=== PATIENT | female | born 1995 | race Caucasian/White ===

== ENCOUNTER 2017-03-14 03:47 | Emergency (ER) | payer BC, OTHER ==
[~2017-03-14] VITALS: Ht 162.6 cm; Wt 65.8 kg
[2017-03-14] MEDS ORDERED: PRENATAL TABLE1 EAC1 PO (03:59)
[2017-03-14] MEDS ORDERED: NORCO 5-325 TA1 EACH PO (06:35)
== END 2017-03-14 06:54 | disposition home or self-care (01) ==
LOC: ED 03:47
DX: O20.0 Threatened abortion (principal); Z3A.01 Less than 8 weeks gestation of pregnancy; Z87.891 Personal history of nicotine dependence; Z79.899 Other long term (current) drug therapy
CPT/HCPCS: 76801; 76817; 84702; 85025; 86900; 86901; 99284

== ENCOUNTER 2017-12-03 07:31 | Emergency (ER) | payer OTHER ==
[~2017-12-03] VITALS: Ht 162.6 cm; Wt 68.0 kg
[~2017-12-03 07:31] MED LIST: NORCO 5-325 TA1 EACH PO; PRENATAL TABLE1 EAC1 PO
== END 2017-12-03 08:25 | disposition home or self-care (01) ==
LOC: ED 07:31
DX: N94.6 Dysmenorrhea, unspecified (principal); F17.200 Nicotine dependence, unspecified, uncomplicated; Z79.899 Other long term (current) drug therapy
CPT/HCPCS: 36415; 84703; 99283

== ENCOUNTER 2019-09-12 00:09 | Inpatient (IN) | payer OTHER ==
[~2019-09-12] VITALS: Ht 162.6 cm; Wt 91.0 kg
--- NOTE | ~2019-09-12 | OR ---
[facility] [address] [place], [place] [address] Draft DATE OF OPERATION: 09/13/2019 SURGEON: Antonio Franco DO PREOPERATIVE DIAGNOSES: 1. Term . 2. Failure to progress. 3. Suspected macrosomia. POSTOPERATIVE DIAGNOSES: 1. Term . 2. Failure to progress. 3. Suspected macrosomia. PROCEDURE PERFORMED: Primary low transverse delivery. ANESTHESIA: Spinal. THERAPY ADMINISTRATIVE ASSISTANT: Bette Apodaca MD ESTIMATED BLOOD LOSS: 600 mL. COMPLICATIONS: None. FINDINGS: Viable male born in the GIO position, weighing 8 pounds 1 ounces. Normal uterus, tubes, and ovaries. Nuchal cord x1. INDICATIONS: Ms. Keene is a very pleasant 23-year-old G1 white female, who presented for induction of labor. was complicated by suspected macrosomia with estimated weight by the late 3rd trimester ultrasound of nearly 4500 g. The patient was admitted for cervical ripening and received Cytotec and then a Cook catheter ripening. The vertex remained quite high. However, once Cook catheter was removed, artificial rupture of membranes was able to be performed. An IUPC was placed and patient was started on PATIENT NAME: NEDA KEENE OPERATIVE REPORT DATE OF : 93 REPORT #: [id number] PHYSICIAN: ANTONIO FRANCO DO PCP: ANTONIO FRANCO DO REPORT IS CONFIDENTIAL AND NOT TO BE RELEASED WITHOUT AUTHORIZATION [facility] [address] [place], [place] [address] Draft low-dose Pitocin per protocol. She did receive an epidural catheter for neuraxial pain relief with good success. The patient dilated to approximately 6 cm, however, station did stay quite high. The cervix became quite swollen and a decrease to approximately 3 cm with significant edema noted. Discussed adequate trial of labor and recommendations for primary low-transverse delivery. The patient understands and wishes to proceed with the procedure. TECHNIQUE: The patient was taken to the operating room where a time-out was performed to confirm correct patient, correct procedure. Epidural anesthesia was bolused and found to be adequate. The patient was prepped and draped in the supine position with a bump under the right hip. Summers catheter was inserted and ICPs were on and running. Ancef 2 g preoperatively were given and no heparin was indicated. Once the epidural was found to be adequate, a Pfannenstiel skin incision was made and incision was carried down to the fascia in the midline. The fascia was nicked in the midline and extended bilaterally using blunt dissection. Once significant subcutaneous blood vessel was encountered and made hemostatic with Bovie electrocautery. Fascia was then grasped with Bere's, elevated, and the underlying rectus muscles dissected off bluntly and sharply. The rectus muscles were then easily divided in the midline and the peritoneum was grasped with hemostats, elevated, and entered bluntly and sharply. Peritoneal incision was extended using blunt dissection and the uterus was palpated and found to be normal. vertex station was again noted to be quite high. An Adelfo self retractor was placed in the lower uterine segment identified. Hysterotomy was performed using surgical scalpel and clear amnion was noted. The hysterotomy was extended bilaterally using blunt dissection and the surgeon's hand was placed into the uterine cavity. The head elevated without difficulty and delivered with the assistance of fundal pressure. Nuchal cord x1 was identified and reduced. The fetus was delivered easily with the assistance of fundal pressure. was vigorous and cried upon delivery. Cord was doubly clamped and cut and cord blood was obtained for routine analysis. The was handed to the waiting pediatric team for further care. Placenta was then manually expressed intact with a centrally inserted three-vessel cord. Bleeding was quite light and the uterine cavity was cleared of any remaining products of conception or clot. Pitocin was administered per protocol. Hysterotomy was repaired using 0 Vicryl in a running locked manner. A second suture of 0 Vicryl was applied in a vertical manner with good imbrication. A small amount of oozing was noted in the midline, this was made hemostatic with a lmslsm-vn-nyroj of 0 Vicryl. The pelvis was irrigated and found to be hemostatic. The Adelfo self retractor was removed and the adnexa were examined and found to be normal. ACell sheet was applied to the lower uterine segment and peritoneum was reapproximated using 2-0 Vicryl in a running nonlocked manner. The rectus was examined and a small amount of oozing was made hemostatic with electrocautery. The skin was then reapproximated using 0 chromic. A small amount of oozing was noted with the rectus and this was made hemostatic with a PATIENT NAME: NEDA KEENE OPERATIVE REPORT DATE OF : [birth year] REPORT #: [id number] PHYSICIAN: ANTONIO FRANCO DO PCP: ANTONIO FRANCO DO REPORT IS CONFIDENTIAL AND NOT TO BE RELEASED WITHOUT AUTHORIZATION [address] [address] [place] saglah-no-cxffh of 2-0 chromic. ACell powder was applied after the rectus was irrigated and found to be hemostatic. The fascia was then reapproximated using 0 Vicryl in a running nonlocked manner. Subcu was reapproximated using 2-0 Vicryl in a running nonlocked stitch after ensuring subcu was hemostatic. Skin was reapproximated using surgical chanel. The uterus was Crede'd for small amount of blood and the patient was taken to the PACU in good and stable condition. Sponge, needle, instrument count was correct x2 at the end the procedure. Dr. Apodaca was present and participated in all portions of procedure. Antonio Franco DO JDW/MODL /[id number] Copies: ~ PATIENT NAME: NEDA KEENE OPERATIVE REPORT DATE OF : [birth year] REPORT #: [id number] PHYSICIAN: ANTONIO FRANCO DO PCP: ANTONIO FRANCO DO REPORT IS CONFIDENTIAL AND NOT TO BE RELEASED WITHOUT AUTHORIZATION
[2019-09-12] MEDS ORDERED: IRON325 M1 PO (01:13)
[2019-09-12] MEDS ORDERED: CYCLOBENZAPRINE10 MG PO (01:14)
--- NOTE | 2019-09-12 12:21 | PR ---
[facility] [address] [place], [place] [address] Signed Progress Notes IP Datetime Report Generated by BRAYDEN: 09/12/2019 12:21 PROGRESS NOTES: [id number] Impression: Reassuring heart rate Procedures: Sterile Vag Exam Plan: Continue present management Informed Consent Obtain: Vaginal Delivery; Section Delivery VITAL SIGNS: [id number] Vital Signs: Reviewed; Within Normal Limits EXAM: [id number] Dilatation: 1.0 Effacement: 40 Station: -4 Uterine Contractions: Irregular mild MEMBRANES: [id number] Membrane Status: Intact Comments: Pt seen and examined. Doing good. Very mild irregular ctxs w/ cytotec. Cervix now 1cm, but still thick and vertex not engaged. Discussed options including continued cervical ripening vs low dose pitocin. Would also consider Cook cath. Discussed if vertex does not engage that may be indicated given macrosomia. Pt understands and agree. Requesting cytotec. Will place per protocol. Fetus A: [id number] FHR Baseline: 150 Variability: Moderate 6-25bpm Accelerations: 15X15 Decelerations: None FHR Category: Category I Presentation: Vertex Comments on Fetus A: No evidence of metabolic acidosis Fetus B: [id number] Signing Physician: Antonio Franco DO Copies: ~ *Electronically Signed* 09/12/19 1225 ANTONIO FRANCO DO PATIENT NAME: NEDA KEENE PROGRESS NOTE DATE OF : 93 PHYSICIAN: ANTONIO FRANCO DO RPT #: [id number] REPORT IS CONFIDENTIAL AND NOT TO BE RELEASED WITHOUT AUTHORIZATION
--- NOTE | 2019-09-12 13:59 | PR ---
[facility] [address] [place], [place] [address] Signed Progress Notes IP Datetime Report Generated by BRAYDEN: 09/12/2019 13:59 PROGRESS NOTES: [id number] Impression: Reassuring heart rate Procedures: Sterile Vag Exam Other Procedures: Cook Cath Plan: Cervical Ripening Informed Consent Obtain: Vaginal Delivery; Section Delivery Other Informed Consents: Cook cath placement VITAL SIGNS: [id number] Vital Signs: Reviewed; Within Normal Limits EXAM: [id number] Dilatation: 1.0 Effacement: 40 Station: -3 Uterine Contractions: Irritability MEMBRANES: [id number] Membrane Status: Intact Comments: Pt seen and examined. Doing well. Cervix largely unchanged, but vertex now applied. Ctxs too frequent for additional prostaglandins or initation of pitocin. Discussed option for cervical ripening w/ Cook cath, including risks/benefits. Pt understands and agrees. Cook cath placed per manufacture's instructions. 40cc of sterile water placed in uterine balloon and 20ccs in vaginal balloow with optimal placement noted on exam. Will increase to 80/80 per manufacture's recommendations Fetus A: [id number] FHR Baseline: 145 Variability: Moderate 6-25bpm Accelerations: 15X15 Decelerations: None FHR Category: Category I Presentation: Vertex Comments on Fetus A: No evidence of metabolic acidosis Fetus B: [id number] Signing Physician: Antonio Franco DO Copies: *Electronically Signed* 09/12/19 4869 ANTONIO FRANCO DO PATIENT NAME: NEDA KEENE PROGRESS NOTE DATE OF : 93 PHYSICIAN: ANTONIO FRANCO DO RPT #: [id number] REPORT IS CONFIDENTIAL AND NOT TO BE RELEASED WITHOUT AUTHORIZATION [facility] [address] [place] [id number] Signed ~ *Electronically Signed* 09/12/19 1359 ANTONIO FRANCO DO PATIENT NAME: NEDA KEENE PROGRESS NOTE DATE OF : 93 PHYSICIAN: ANTONIO FRANCO DO RPT #: [id number] REPORT IS CONFIDENTIAL AND NOT TO BE RELEASED WITHOUT AUTHORIZATION
--- NOTE | 2019-09-12 15:42 | PR ---
[facility] [address] [place], [place] [address] Signed Progress Notes IP Datetime Report Generated by BRAYDEN: 09/12/2019 15:42 PROGRESS NOTES: [id number] Impression: Reassuring heart rate Procedures: Sterile Vag Exam Other Procedures: Cook Cath Plan: Anesthesia consult Informed Consent Obtain: Vaginal Delivery; Section Delivery Other Informed Consents: Cook cath placement VITAL SIGNS: [id number] Vital Signs: Reviewed; Within Normal Limits EXAM: [id number] Dilatation: 1.0 Effacement: 40 Station: -3 Uterine Contractions: q 2 minutes MEMBRANES: [id number] Membrane Status: Intact Comments: Pt seen and evaluated. Doing well, but ctxs now very painful. Requesting epidural. Anesthesia notified and will evaluate soon. Cook cath still in place. Will evaluate once patient comfortable w/ epidural Fetus A: [id number] FHR Baseline: 145 Variability: Moderate 6-25bpm Accelerations: None Decelerations: None FHR Category: Category I Presentation: Vertex Comments on Fetus A: No evidence of metabolic acidosis Fetus B: [id number] Signing Physician: Antonio Franco DO Copies: ~ *Electronically Signed* 09/12/19 1542 ANTONIO FRANCO DO PATIENT NAME: NEDA KEENE PROGRESS NOTE DATE OF : 93 PHYSICIAN: ANTONIO FRANCO DO RPT #: [id number] REPORT IS CONFIDENTIAL AND NOT TO BE RELEASED WITHOUT AUTHORIZATION
--- NOTE | 2019-09-12 17:42 | PR ---
[facility] [address] [facility] [place], [place] [address] Signed Progress Notes IP Datetime Report Generated by CPN: 09/12/2019 17:42 PROGRESS NOTES: [id number] Impression: Reassuring heart rate Procedures: Sterile Vag Exam Other Procedures: Cook Cath Plan: Continue present management Informed Consent Obtain: Vaginal Delivery; Section Delivery Other Informed Consents: Cook cath placement VITAL SIGNS: [id number] Vital Signs: Reviewed; Within Normal Limits EXAM: [id number] Dilatation: 1.0 Effacement: 40 Station: -3 Uterine Contractions: q 2 minutes MEMBRANES: [id number] Membrane Status: Intact Comments: Pt seen and examined. More comfortable w/ epidural. Cook cath in place. Will continue mechanical cervical ripening. All questions answered Fetus A: [id number] FHR Baseline: 140 Variability: Moderate 6-25bpm Accelerations: None Decelerations: None FHR Category: Category I Presentation: Vertex Comments on Fetus A: No evidence of metabolic acidosis Fetus B: [id number] Signing Physician: Antonio Franco DO Copies: ~ *Electronically Signed* 09/12/19 1742 ANTONIO FRANCO DO PATIENT NAME: NEDA KEENE PROGRESS NOTE DATE OF : 93 PHYSICIAN: NATONIO FRANCO DO RPT #: [id number] REPORT IS CONFIDENTIAL AND NOT TO BE RELEASED WITHOUT AUTHORIZATION
--- NOTE | 2019-09-12 21:17 | PR ---
[facility] [place] [facility] [address] [place], [place] [address] Signed Progress Notes IP Datetime Report Generated by BRAYDEN: 09/12/2019 21:17 PROGRESS NOTES: [id number] Impression: Reassuring heart rate Procedures: Sterile Vag Exam Other Procedures: Cook Cath Plan: Continue present management Informed Consent Obtain: Vaginal Delivery; Section Delivery Other Informed Consents: Cook cath placement VITAL SIGNS: [id number] Vital Signs: Reviewed EXAM: [id number] Dilatation: 1.0 Effacement: 40 Station: -3 Uterine Contractions: Irritability MEMBRANES: [id number] Membrane Status: Intact Comments: Pt seen and examined. Cook cath in place. Cervix palpated and Cook in excellent position. Reviewed reassuring FHT. Transient HTN noted after epidural placement has resolved. No OBANDO, RUQ pain, or visual changes. Will continue cervical ripening with Cook cath. Plan AROM if vertex well applied when Cook removed. Reviewed plan of care w/ RN and pt. All questions answered Fetus A: [id number] FHR Baseline: 145 Variability: Moderate 6-25bpm Accelerations: None Decelerations: None FHR Category: Category I Presentation: Vertex Comments on Fetus A: No evidence of metabolic acidosis Fetus B: [id number] Signing Physician: Antonio Franco DO Copies: ~ *Electronically Signed* 09/12/19 3254 ANTONIO FRANCO DO PATIENT NAME: NEDA KEENE PROGRESS NOTE DATE OF : 93 PHYSICIAN: ANTONIO FRANCO DO RPT #: [id number] REPORT IS CONFIDENTIAL AND NOT TO BE RELEASED WITHOUT AUTHORIZATION
--- NOTE | 2019-09-12 23:27 | PR ---
[facility] [address] [place], [place] [address] Signed Progress Notes IP Datetime Report Generated by BRAYDEN: 09/12/2019 23:27 PROGRESS NOTES: [id number] Impression: Reassuring heart rate Procedures: Sterile Vag Exam Other Procedures: Cook Cath Plan: Continue present management Informed Consent Obtain: Vaginal Delivery; Section Delivery Other Informed Consents: Cook cath placement VITAL SIGNS: G3309328 Vital Signs: Reviewed; Within Normal Limits EXAM: [id number] Dilatation: 1.0 Effacement: 40 Station: -3 Uterine Contractions: Irritability MEMBRANES: [id number] Membrane Status: Intact Comments: Sterile vaginal exam shows Cook cath in place with cervix remaining. Pt comfortable and resting. FHT reassuring. Will continue w/ Cook until 12 hrs postplacement, and then d/c if Cook not spontaneously delivered. Then will plan AROM if vertex well applied or low dose pitocin if not well applied. Discussed anticipated course of delivery and possibility of . All questions answered Fetus A: [id number] FHR Baseline: 145 Variability: Moderate 6-25bpm Accelerations: 15X15 Decelerations: None FHR Category: Category I Presentation: Vertex Comments on Fetus A: No evidence of metabolic acidosis Fetus B: [id number] Signing Physician: Antonio Franco DO Copies: ~ *Electronically Signed* 09/12/19 1137 ANTONIO FRANCO DO PATIENT NAME: NEDA KEENE PROGRESS NOTE DATE OF : 93 PHYSICIAN: ANTONIO FRANCO DO RPT #: [id number] REPORT IS CONFIDENTIAL AND NOT TO BE RELEASED WITHOUT AUTHORIZATION
--- NOTE | 2019-09-13 03:23 | PR ---
[facility] [address] [place], [place] [address] Signed Progress Notes IP Datetime Report Generated by BRAYDEN: 09/13/2019 03:23 PROGRESS NOTES: [id number] Impression: Reassuring heart rate Procedures: Artificial ROM; Intrauterine Pressure Catheter; Sterile Vag Exam Other Procedures: Cook Cath Plan: Augmentation Informed Consent Obtain: Vaginal Delivery; Section Delivery Other Informed Consents: Cook cath placement VITAL SIGNS: [id number] Vital Signs: Reviewed; Within Normal Limits EXAM: [id number] Dilatation: 3.0 Effacement: 40 Station: -3 Uterine Contractions: Irregular MEMBRANES: [id number] Membrane Status: Intact ROM Note: Reviewed AROM in detail including risks of cord prolapse. Vertex somewhat applied, and no umbilical cord or other presenting parts noted. AROM then carefully performed for large amount of clear fluid. vertex descended and no cord prolapse or other abnormalities noted. IUPC placed w/out difficulty. Mother and baby tolerated well. Comments: Pt seen and examined. Cook cath remained in place at 12 hrs, and was deflated per manufacture's instructions. Vertex somewhat well applied. Reviewed options for , pitocin, or controlled AROM. Pt desires AROM which was performed without difficulty. IUPC placed. Mother and baby tolerated well. Will start low dose pitocin per protocol. Discussed anticipated course of labor, and reviewed indications for if required. All questions answered. Fetus A: [id number] FHR Baseline: 145 Variability: Moderate 6-25bpm Accelerations: None Decelerations: None FHR Category: Category I Presentation: Vertex Comments on Fetus A: No evidence of metabolic acidosis Fetus B: [id number] Signing Physician: Antonio Franco DO *Electronically Signed* 09/13/19 0323 ANTONIO FRANCO DO PATIENT NAME: NEDA KEENE PROGRESS NOTE DATE OF : 93 PHYSICIAN: ANTONIO FRANCO DO RPT #: [id number] REPORT IS CONFIDENTIAL AND NOT TO BE RELEASED WITHOUT AUTHORIZATION [address] [place], [place] [address] Signed Copies: ~ *Electronically Signed* 09/13/19322 ANTONIO FRANCO DO PATIENT NAME: NEDA KEENE PROGRESS NOTE DATE OF : 93 PHYSICIAN: ANTONIO FRANCO DO RPT #: [id number] REPORT IS CONFIDENTIAL AND NOT TO BE RELEASED WITHOUT AUTHORIZATION
--- NOTE | 2019-09-13 08:12 | PR ---
[facility] [address] [place], [place] [address] Signed Progress Notes IP Datetime Report Generated by BRAYDEN: 09/13/2019 08:12 PROGRESS NOTES: [id number] Impression: Normal progression of labor; Reassuring heart rate Procedures: Sterile Vag Exam Other Procedures: Cook Cath Plan: Continue present management Informed Consent Obtain: Vaginal Delivery; Section Delivery Other Informed Consents: Cook cath placement VITAL SIGNS: [id number] Vital Signs: Reviewed; Within Normal Limits EXAM: [id number] Dilatation: 5.0 Effacement: 75 Station: -3 Uterine Contractions: q 3 minutes MEMBRANES: [id number] Membrane Status: Intact ROM Note: Reviewed AROM in detail including risks of cord prolapse. Vertex somewhat applied, and no umbilical cord or other presenting parts noted. AROM then carefully performed for large amount of clear fluid. vertex descended and no cord prolapse or other abnormalities noted. IUPC placed w/out difficulty. Mother and baby tolerated well. Comments: Pt seen and examined. Doing well. More painful w/ contractions. Pitocin per protocol, and ctxs regular. vertex well applied and -3 station. Will monitor progress closely. Pt desires rebolus of epidural. No other concerns. Fetus A: [id number] FHR Baseline: 145 Variability: Moderate 6-25bpm Accelerations: None Decelerations: None FHR Category: Category I Presentation: Vertex Comments on Fetus A: No evidence of metabolic acidosis Fetus B: [id number] Signing Physician: Antonio Franco DO Copies: *Electronically Signed* 09/13/19 0812 ANTONIO FRANCO DO PATIENT NAME: NEDA KEENE PROGRESS NOTE DATE OF : 93 PHYSICIAN: ANTONIO FRANCO DO RPT #: [id number] REPORT IS CONFIDENTIAL AND NOT TO BE RELEASED WITHOUT AUTHORIZATION [facility] [address] [place] [address] Signed ~ *Electronically Signed* 09/13/19 0812 ANTONIO FRANCO DO PATIENT NAME: NEDA KEENE PROGRESS NOTE DATE OF : 93 PHYSICIAN: ANTONIO FRANCO DO RPT #: [id number] REPORT IS CONFIDENTIAL AND NOT TO BE RELEASED WITHOUT AUTHORIZATION
--- NOTE | 2019-09-13 12:01 | NUR ---
MET WITH PTS' SIG OTHER. HE IS EXCITED AND NERVOUS, WORRIED ABOUT MONEY. ALL THE THINGS EVERY NEW DAD WORRIES ABOUT. GAVE ENCOURAGEMENT WILL FOLLOW NEEDED
--- NOTE | 2019-09-13 12:28 | PR ---
[facility] [address] [place], [place] [address] Signed Progress Notes IP Datetime Report Generated by BRAYDEN: 09/13/2019 12:28 PROGRESS NOTES: [id number] Impression: Arrest of dilatation/descent Procedures: Sterile Vag Exam Other Procedures: Cook Cath Plan: Deliver- Section Informed Consent Obtain: Section Delivery Other Informed Consents: Cook cath placement VITAL SIGNS: [id number] Vital Signs: Reviewed; Within Normal Limits EXAM: [id number] Dilatation: 4.0 Effacement: thick Station: -3 Uterine Contractions: q1-2 minutes MEMBRANES: [id number] Membrane Status: Intact ROM Note: Reviewed AROM in detail including risks of cord prolapse. Vertex somewhat applied, and no umbilical cord or other presenting parts noted. AROM then carefully performed for large amount of clear fluid. vertex descended and no cord prolapse or other abnormalities noted. IUPC placed w/out difficulty. Mother and baby tolerated well. Comments: Pt seen and examined. Regular contractions. Cervix notably thicker and much more edematous. Continued high station. Discussed adequate trial of labor and indication for proceeding to primary LTCS at this point. Reviewed C/S in detail including risks/benefits and implications on future . Pt understands and agrees. Consents signed. Will d/c pitocin. OR notified. Fetus A: [id number] FHR Baseline: 150 Variability: Moderate 6-25bpm Accelerations: 15X15 Decelerations: Late FHR Category: Category II Presentation: Vertex Comments on Fetus A: No evidence of metabolic acidosis. One sublet isolated late deceleration Fetus B: [id number] Signing Physician: Antonio Franco DO *Electronically Signed* 09/13/19 1228 ANTONIO FARNCO DO PATIENT NAME: NEDA KEENEIQUE PROGRESS NOTE DATE OF : 93 PHYSICIAN: ANTONIO FRANCO DO RPT #: [id number] REPORT IS CONFIDENTIAL AND NOT TO BE RELEASED WITHOUT AUTHORIZATION [address] [place] [address] Signed Copies: ~ *Electronically Signed* 09/13/19 1228 ANTONIO FRANCO DO PATIENT NAME: NEDA KEENE PROGRESS NOTE DATE OF : 93 PHYSICIAN: ANTONIO FRANCO DO RPT #: [id number] REPORT IS CONFIDENTIAL AND NOT TO BE RELEASED WITHOUT AUTHORIZATION
--- NOTE | 2019-09-13 14:49 | NUR ---
09/13/19 1449 Alberto,Carli 1437 PT ARRIVED TO PACU ON RA, RESP EVEN AND UNLABORED. PT DENIES PAIN AND NAUSEA. VSS. PT AWAKE AND TALKING TO RN. 1445 BABY TO CHEST WITH FBC RN, SPINAL LEVEL L-6. PT DENIES SOB.
--- NOTE | 2019-09-14 09:24 | PR ---
[facility] [address] [facility] [place], [place] [address] Signed PP Progress Notes Datetime Report Generated by CPMor: 09/14/2019 09:24 SUBJECTIVE: [id number] Pain: Within normal limits Nausea/Vomiting: Denies Flatus: Yes Vital Signs: [id number] Vital Signs: Reviewed; Within Normal Limits EXAM: [id number] Cardiovascular: Normal Respiratory: Normal Abdomen/Uterus: Abnormal Lochia: Normal Vulva/Perineum: Not Done Breasts: Not Done CVA Tenderness: Not Done Extremities: Normal Incision: Normal Progress: Normal Exam Comments: Abdomen with active BS. Fundus firm, NT @ U-1. incision clean and intact. H/H 9.5/28, WBC 10, plat 196k IMPRESSION/PLAN/PROCEDURES: [id number] Impression: Normal progression Other Plans: increase ambulation, shower Progress Notes: Doing well overall. Signing Physician: Vesta Apodaca MD Copies: ~ *Electronically Signed* 09/14/19923 VESTA APODACA MD PATIENT NAME: NEDA KEENE PROGRESS NOTE DATE OF : 93 PHYSICIAN: VESTA APODACA MD RPT #: [id number] REPORT IS CONFIDENTIAL AND NOT TO BE RELEASED WITHOUT AUTHORIZATION
--- NOTE | 2019-09-15 08:00 | PR ---
[facility] [address] [facility] [place], [place] [address] Signed PP Progress Notes Datetime Report Generated by BRAYDEN: 09/15/2019 08:00 SUBJECTIVE: [id number] Pain: Within normal limits Nausea/Vomiting: Denies Flatus: Yes Vital Signs: [id number] Vital Signs: Reviewed; Within Normal Limits EXAM: [id number] Cardiovascular: Not Done Respiratory: Not Done Abdomen/Uterus: Abnormal Lochia: Normal Vulva/Perineum: Not Done Breasts: Not Done CVA Tenderness: Not Done Extremities: Normal Incision: Normal Progress: Abnormal Exam Comments: Abdomen with active BS. Fundus firm, NT @ U-1. IMPRESSION/PLAN/PROCEDURES: [id number] Impression: Normal progression Plan: Remove chanel; Discharge Other Plans: increase ambulation, shower Progress Notes: Doing well overall. She is ready for D/C. Signing Physician: Bette Apodaca MD Copies: ~ *Electronically Signed* 09/15/19 0800 BETTE APODACA MD PATIENT NAME: NEDA KEENE PROGRESS NOTE DATE OF : 93 PHYSICIAN: BETTE APODACA MD RPT #: [id number] REPORT IS CONFIDENTIAL AND NOT TO BE RELEASED WITHOUT AUTHORIZATION
== END 2019-09-15 13:45 | disposition home or self-care (01) | DRG 787 ==
LOC: FBC 00:09
PROVIDERS: ADMIT Obstetrics & Gynecology
PROC: 3E0P7VZ Introduction of Hormone into Female Reproductive, Via Natural or Artificial Opening (ICD-10-PCS; 2019-09-12)
PROC: 0U7C7ZZ Dilation of Cervix, Via Natural or Artificial Opening (ICD-10-PCS; 2019-09-12)
PROC: 00HU33Z Insertion of Infusion Device into Spinal Canal, Percutaneous Approach (ICD-10-PCS; 2019-09-12)
PROC: 3E0R3BZ Introduction of Anesthetic Agent into Spinal Canal, Percutaneous Approach (ICD-10-PCS; 2019-09-12)
PROC: 10H07YZ Insertion of Other Device into Products of Conception, Via Natural or Artificial Opening (ICD-10-PCS; principal; 2019-09-13 13:45)
PROC: 10907ZC Drainage of Amniotic Fluid, Therapeutic from Products of Conception, Via Natural or Artificial Opening (ICD-10-PCS; principal; 2019-09-13 13:45)
PROC: 10D00Z1 Extraction of Products of Conception, Low, Open Approach (ICD-10-PCS; principal; 2019-09-13 13:45)
DX: O36.63X0 Maternal care for excessive fetal growth, third trimester, not applicable or unspecified (principal); O63.9 Long labor, unspecified; O99.324 Drug use complicating childbirth; Z3A.39 39 weeks gestation of pregnancy; Z37.0 Single live birth; O62.1 Secondary uterine inertia; O32.4XX0 Maternal care for high head at term, not applicable or unspecified; O69.1XX0 Labor and delivery complicated by cord around neck, with compression, not applicable or unspecified; O76 Abnormality in fetal heart rate and rhythm complicating labor and delivery; O99.02 Anemia complicating childbirth; D64.9 Anemia, unspecified; F12.90 Cannabis use, unspecified, uncomplicated; O99.344 Other mental disorders complicating childbirth; F41.9 Anxiety disorder, unspecified; F31.9 Bipolar disorder, unspecified; Z87.891 Personal history of nicotine dependence; Z79.899 Other long term (current) drug therapy
CPT/HCPCS: 01961; 36415; 85027; A9270; J0690; J1650; J1885; J2274; J2590; J2795; J7121

== ENCOUNTER 2020-09-09 09:13 | Emergency (ER) | payer OTHER ==
[~2020-09-09] VITALS: Ht 162.6 cm; Wt 83.9 kg
[~2020-09-09 09:13] MED LIST changes: +CYCLOBENZAPRINE10 MG PO; +IRON325 M1 PO
[2020-09-09] MEDS ORDERED: BUPROPION XL150 MG PO (09:39)
[2020-09-09] MEDS ORDERED: ELURYNG VAGINA1 EACH (09:39)
== END 2020-09-09 13:57 | disposition home or self-care (01) ==
LOC: ED 09:13
DX: R10.32 Left lower quadrant pain (principal); Z87.891 Personal history of nicotine dependence; Z88.8 Allergy status to other drugs, medicaments and biological substances; Z88.1 Allergy status to other antibiotic agents; Z79.899 Other long term (current) drug therapy; Z91.018 Allergy to other foods
CPT/HCPCS: 74177; 76830; 76856; 80053; 81001; 83690; 84703; 85025; 96374; 96375; 96376; 99284-25; J2270; J2405; J7030; Q9967

== ENCOUNTER 2021-10-01 16:39 | Emergency (ER) | payer OTHER ==
[~2021-10-01] VITALS: Ht 162.6 cm; Wt 79.4 kg
[~2021-10-01 16:39] MED LIST changes: +BUPROPION XL150 MG PO; +ELURYNG VAGINA1 EACH
[2021-10-01] MEDS ORDERED: WELLBUTRIN XL300 MG PO (19:16)
== END 2021-10-01 22:41 | disposition home or self-care (01) ==
LOC: ED 16:39
DX: O26.891 Other specified pregnancy related conditions, first trimester (principal); R10.2 Pelvic and perineal pain; Z3A.01 Less than 8 weeks gestation of pregnancy; Z87.891 Personal history of nicotine dependence; Z91.018 Allergy to other foods; Z79.899 Other long term (current) drug therapy
CPT/HCPCS: 36415; 76801; 76817; 81001; 84702; 85025; 99284-25

== ENCOUNTER 2021-12-02 08:37 | Emergency (ER) | payer OTHER ==
[~2021-12-02] VITALS: Ht 162.6 cm; Wt 85.0 kg
[~2021-12-02 08:37] MED LIST changes: +WELLBUTRIN XL300 MG PO
[2021-12-02] MEDS ORDERED: BUSPIRONE HCL5 MG PO (09:07)
[2021-12-02] MEDS ORDERED: PRENATABS RX T1 EACH PO (09:08)
[2021-12-02] MEDS ORDERED: ONDANSETRON ODT8 MG PO (10:33)
== END 2021-12-02 11:00 | disposition home or self-care (01) ==
LOC: ED 08:37
DX: K52.9 Noninfective gastroenteritis and colitis, unspecified (principal); Z79.899 Other long term (current) drug therapy; Z91.018 Allergy to other foods
CPT/HCPCS: 36415; 80053; 81001; 85025; 96374; 99284-25; J2405; J7030

== ENCOUNTER 2021-12-15 05:42 | Emergency (ER) | payer OTHER ==
[~2021-12-15] VITALS: Ht 162.6 cm; Wt 84.8 kg
[~2021-12-15 05:42] MED LIST changes: +BUSPIRONE HCL5 MG PO; +ONDANSETRON ODT8 MG PO; +PRENATABS RX T1 EACH PO
--- OUTSIDE RECORDS SUMMARY | 2021-12-15 05:50 | XMS ---
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 - 2 Visits in 30 Days CARE PROVIDERS There are no care providers on record at this time. Anna has no Care Guidelines for this patient. Sourav VISIT COUNT (12 MO.) 3 [facility] TOTAL 3 NOTE: Visits indicate total known visits. 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 - Nausea with vomiting, unspecified - Allergy to other foods - Noninfective gastroenteritis and colitis, unspecified 10/01/2021 16:39 [facility] OR TYPE: Emergency COMPLAINT: - ABDOMINAL PAIN/ 6 WEEKS PREG DIAGNOSES: - Lower abdominal pain, unspecified - Less than 8 weeks gestation of - Allergy to other foods - Pelvic and perineal pain - Other assistant terminal manager (current) drug therapy - Other specified related conditions, first trimester - Personal history of nicotine dependence INPATIENT VISIT TRACKING (12 MO.) No inpatient visits to display in this time frame [email or web address]
== END 2021-12-15 10:20 | disposition home or self-care (01) ==
LOC: ED 05:42
DX: O20.9 Hemorrhage in early pregnancy, unspecified (principal); Z87.891 Personal history of nicotine dependence; Z88.8 Allergy status to other drugs, medicaments and biological substances; Z79.899 Other long term (current) drug therapy; Z3A.17 17 weeks gestation of pregnancy
CPT/HCPCS: 36415; 76815; 80053; 81001; 85025; 99284-25; A9270; J7030

== ENCOUNTER 2022-04-08 07:15 | Inpatient (IN) | payer OTHER ==
[~2022-04-08] VITALS: Ht 162.6 cm; Wt 90.7 kg
--- NOTE | ~2022-04-08 | OR ---
[facility] [address], [place] [address] Draft DATE OF OPERATION: 05/12/2022 SURGEON: Antonio Franco DO PREOPERATIVE DIAGNOSES: 1. Term at 39 weeks gestation. 2. History of prior section. POSTOPERATIVE DIAGNOSES: 1. Term at 39 weeks gestation. 2. History of prior section. PROCEDURES PERFORMED: Repeat low transverse delivery. ANESTHESIA: Spinal. SUPERVISOR CARTOGRAPHY: Mary Andrea DO. ESTIMATED BLOOD LOSS: 700 mL. SPECIMEN: None. COMPLICATIONS: None. DRAINS: Summers to gravity. FINDINGS: Delivery of a viable male in the GIO position. The repeat low transverse delivery. Normal tubes and ovaries bilaterally. The uterus demonstrates some scarring with high-riding bladder and normal lower segment thickness. She does have some dense scarring of the fascia. No hernias. COMPLICATIONS: PATIENT NAME: NEDA KEENE OPERATIVE REPORT DATE OF : [birth year] REPORT #: [id number] PHYSICIAN: ANTONIO FRANCO DO PCP: DANIEL RODRIGUEZ MD REPORT IS CONFIDENTIAL AND NOT TO BE RELEASED WITHOUT AUTHORIZATION [facility] [address], [place] [address] Draft None. INDICATIONS: Ms. Keene is a very pleasant 26-year-old G5, P1-0-3-1 with IUP at 39 and 1 weeks gestation, presented to the [facility] for repeat low transverse delivery. Risks, benefits, and alternatives were discussed in detail with the patient. The patient understands and wished to proceed with the procedure. PROCEDURE IN DETAIL: The patient was taken to the operating room where a time-out was performed to confirm correct patient and correct procedure. Spinal anesthetic was adequately established and the patient was prepped and draped in the supine position with a bump under the right hip. A Summers catheter was inserted. The patient received Ancef 2 g preoperative, but no heparin was indicated. ICPs were on and running. After spinal was confirmed to be adequate, a Pfannenstiel skin incision was made using a surgical scalpel, cutting through prior surgical scar. Incision was carried down to the fascia. The fascia was nicked in the midline and fascial incision was extended bilaterally using the curved Norwood scissors. Fascia was grasped with Bere's, elevated, and dissected using blunt and sharp dissection. Some dense fascial scarring was noted here. Rectus was then divided in the midline using sharp and blunt dissection and peritoneum was then entered using sharp dissection. Peritoneal incision was extended using blunt dissection. Uterus with high-riding bladder was noted, but no significant pelvic adhesions. Adelfo self retractor was placed and a bladder flap was performed to mobilize the bladder caudad. Lower segment was identified and surgical scalpel was used to perform hysterotomy. Hysterotomy was extended bilaterally using blunt dissection. Amniotic sac was ruptured using pickups with teeth. Surgeon's hand was then placed in the uterine cavity and the head elevated into the maternal abdomen, delivered with the assistance of fundal pressure. No nuchal cord was identified. The delivered easily. The was vigorous and cried at delivery. Cord was doubly clamped and cut and cord blood obtained for routine analysis. The placenta was then expressed intact with a centrally inserted three-vessel cord. The uterus was cleared of any remaining products of conception or clot. Hysterotomy was then repaired using 0 Monocryl in a running locked suture. Some bogginess of the lower uterine segment was appreciated. The patient did receive Pitocin per protocol and received 1 g of tranexamic acid additionally. Bleeding reduced significantly. A second imbricating stitch of 0 Monocryl was applied with excellent imbrication. Small amount of oozing was noted superficially on the uterine serosa and this was made hemostatic with Bovie electrocautery. The pelvis was irrigated and found to be hemostatic. Normal tubes and ovaries bilaterally. The Adelfo self retractor was removed and the pelvis again examined and found to be hemostatic. Peritoneum was then reapproximated using 2-0 Vicryl in a running nonlocked manner. Rectus was plicated in the midline using 0 Vicryl in interrupted sutures. Rectus was then made hemostatic with judicious use of Bovie PATIENT NAME: NEDA KEENE OPERATIVE REPORT DATE OF : [birth year] REPORT #: [id number] PHYSICIAN: ANTONIO FRANCO DO PCP: DANIEL RODRIGUEZ MD REPORT IS CONFIDENTIAL AND NOT TO BE RELEASED WITHOUT AUTHORIZATION [address] [address] Draft electrocautery. Fascia was reapproximated using 0 Vicryl in a running nonlocked manner. Subcuticular space was then made hemostatic with Bovie electrocautery and irrigated and found to be hemostatic. Subcu was then reapproximated using 2-0 Vicryl in a running nonlocked manner. Skin was reapproximated using surgical chanel. The uterus was Crede'd for scant amount of blood and the patient remained in the operating room for postoperative tap block per Anesthesia. Sponge, needle, and instrument counts were correct x2 at the end of the procedure. Dr. Andrea was present and participated in all portions of the procedure. Antonio Franco DO JDW/MODL /[id number] Copies: ~ PATIENT NAME: NEDA KEENE OPERATIVE REPORT DATE OF : [birth year] REPORT #: [id number] PHYSICIAN: ANTONIO FRANCO DO PCP: DANIEL RODRIGUEZ MD REPORT IS CONFIDENTIAL AND NOT TO BE RELEASED WITHOUT AUTHORIZATION
--- NOTE | 2022-05-12 08:40 | NUR ---
05/12/22 0840 Carli Dominguez 0881 PT ARRIVED TO ROOM 103, PT DENIES PAIN AND NAUSEA. VSS. PT UNABLE TO MOVE FEET AND NUMBNESS REPORTED. EDUCATION GIVEN. HOB INCREASED SLIGHTLY. BABY TO CHEST WITH FBC RN. IV INFUSING LR WITH PIT, SITE WNL.
--- NOTE | 2022-05-13 12:52 | PR ---
[facility] [address], [place] [address] Signed PP Progress Notes Datetime Report Generated by CPN: 05/13/2022 12:52 SUBJECTIVE: [id number] Pain: Within Normal Limits Nausea/Vomiting: Denies Flatus: Yes Bowel Movement: Yes Vital Signs: [id number] Vital Signs: Reviewed; Within Normal Limits EXAM: Ongoing Cardiovascular: Normal Respiratory: Normal Abdomen/Uterus: Normal Lochia: Normal Breasts: Normal Extremities: Normal Incision: Normal Progress: Normal Exam Comments: General: sitting up in bed, , NAD Lungs: No dyspnea/retractions CV: RRR Abd: SNTND Ext: trace edema, neg Jeanne's BL IMPRESSION/PLAN/PROCEDURES: [id number] Impression: Normal Progression Plan: Continue Present Management Progress Notes: Pt is a 26 yo POD#1 s/p RLTCS -Progressing well : ambulating, voiding, +BM, tolerating regular appetite, lochia moderate, denies dizziness/ lightheadedness with ambulation, pain well controlled with toradol and percocet. well, deneis complaints/ concerns. -Hgb 8.8 POD#1, pt reports h/o chronic anemia and has tolerated oral iron well. Ordered oral FeSO4 Anticipate DC to home tomorrow or Monday. Signing Physician: Yanni Andrea DO *Electronically Signed* 05/13/22 4922 YANNI ANDREA DO PATIENT NAME: NEDA KEENE PROGRESS NOTE DATE OF : [birth year] PHYSICIAN: YANNI ANDREA DO RPT #: [id number] REPORT IS CONFIDENTIAL AND NOT TO BE RELEASED WITHOUT AUTHORIZATION
--- NOTE | 2022-05-14 08:38 | PR ---
[facility] [address] [facility] [place], [place] [address] Signed PP Progress Notes Datetime Report Generated by CPN: 05/14/2022 08:38 SUBJECTIVE: [id number] Pain: Within Normal Limits Nausea/Vomiting: Denies Flatus: Yes Bowel Movement: Yes Vital Signs: [id number] Vital Signs: Reviewed; Within Normal Limits EXAM: Ongoing Cardiovascular: Normal Respiratory: Normal Abdomen/Uterus: Normal Lochia: Normal Vulva/Perineum: Not Done Breasts: Not Done CVA Tenderness: Normal Extremities: Normal Incision: Normal Progress: Normal Exam Comments: Fundus firm U-2 nontender. Incision healing well w/ rylie in place IMPRESSION/PLAN/PROCEDURES: [id number] Impression: Normal Progression Plan: Remove Rylie; Discharge Progress Notes: Pt seen and examined. Doing well. Ambulating, voiding, and tolerating full diet. Pain andl lochia minimal. well. No fevers/chills or other concerns. Desires d/c home. All questions answered and discharge instructions and meds reviewed in detail. Signing Physician: Antonio Franco DO Copies: ~ *Electronically Signed* 05/14/22 0816 ANTONIO FRANCO DO PATIENT NAME: NEDA KEENE PROGRESS NOTE DATE OF : [birth year] PHYSICIAN: ANTONIO FRANCO DO RPT #: [id number] REPORT IS CONFIDENTIAL AND NOT TO BE RELEASED WITHOUT AUTHORIZATION
== END 2022-05-14 10:38 | disposition home or self-care (01) | DRG 787 ==
LOC: FBC 05-12 05:13
PROVIDERS: ADMIT Obstetrics & Gynecology; ATTEND Obstetrics & Gynecology
PROC: 10D00Z1 Extraction of Products of Conception, Low, Open Approach (ICD-10-PCS; principal; 2022-05-12 07:30)
DX: O34.211 Maternal care for low transverse scar from previous cesarean delivery (principal); D62 Acute posthemorrhagic anemia; O99.02 Anemia complicating childbirth; Z37.0 Single live birth; Z3A.39 39 weeks gestation of pregnancy; O99.344 Other mental disorders complicating childbirth; F41.9 Anxiety disorder, unspecified; Z20.822 Contact with and (suspected) exposure to COVID-19; Z87.891 Personal history of nicotine dependence; Z79.899 Other long term (current) drug therapy
CPT/HCPCS: 01961; 36415; 85027; 86850; 86900; 86901; A9270; J0131; J0690; J1100; J1650; J1885; J2001; J2370; J2405; J2590; J2795; J7121

== ENCOUNTER 2022-10-09 09:01 | Emergency (ER) | payer OTHER ==
[~2022-10-09] VITALS: Ht 152.4 cm; Wt 87.2 kg
--- OUTSIDE RECORDS SUMMARY | 2022-10-09 09:04 | XMS ---
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 Care History Medical/Surgical 12/16/2021 [facility] Patient has OB appt with Dr. Franco on 12/16/2021. Sourav VISIT COUNT (12 MO.) 3 [facility]. TOTAL 3 NOTE: Visits indicate total known visits. 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 - Noninfective gastroenteritis and colitis, unspecified - Nausea with vomiting, unspecified - Allergy to other foods INPATIENT VISIT TRACKING (12 MO.) 05/12/2022 05:13 [facility] OR TYPE: [facility] COMPLAINT: - REPEAT C SECTION DIAGNOSES: - Other assisted (current) drug therapy - Anxiety disorder, unspecified - 39 weeks gestation of - Acute posthemorrhagic anemia - Maternal care for low transverse scar from previous delivery - 39 weeks gestation of - Anxiety disorder, unspecified - Other mental disorders complicating childbirth - Contact with and (suspected) exposure to COVID-19 - Personal history of nicotine dependence - Other mental disorders complicating childbirth - Other assisted (current) drug therapy - Single live - Contact with and (suspected) exposure to COVID-19 - Anemia complicating childbirth - Anemia complicating childbirth - Personal history of nicotine dependence - Acute posthemorrhagic anemia - Single live [email or web address]
[2022-10-09] MEDS ORDERED: NAPROSYN500 MG PO (09:25)
[2022-10-09] MEDS ORDERED: MEDROL4 MG PO (09:25)
== END 2022-10-09 09:42 | disposition home or self-care (01) ==
LOC: ED 09:01
DX: G56.03 Carpal tunnel syndrome, bilateral upper limbs (principal); Z87.891 Personal history of nicotine dependence; Z91.018 Allergy to other foods; Z79.899 Other long term (current) drug therapy
CPT/HCPCS: 99283

== ENCOUNTER 2022-10-30 22:27 | Emergency (ER) | payer OTHER ==
[~2022-10-30] VITALS: Ht 152.4 cm; Wt 87.1 kg
[~2022-10-30 22:27] MED LIST changes: +MEDROL4 MG PO; +NAPROSYN500 MG PO
--- OUTSIDE RECORDS SUMMARY | 2022-10-30 22:30 | XMS ---
PreManage Notification: NEDA KEENE Security Winter Intern Events No recent Security Events currently on file CRITERIA MET - [facility] - Has Care Guidelines - [facility] - 2 Visits in 30 Days CARE PROVIDERS -Юлия- Dentist: [employer] [facility] PHONE: [phone] Anna has no Care Guidelines for this patient. Care History Medical/Surgical 12/16/2021 [facility] Patient has OB appt with Dr. Franco on 12/16/2021. Sourav VISIT COUNT (12 MO.) 4 [facility]. TOTAL 4 NOTE: Visits indicate total known visits. ED/UCC VISIT TRACKING (12 MO.) 10/30/2022 22:27 [facility] OR TYPE: Emergency COMPLAINT: - LACERATION 10/09/2022 09:02 [facility] OR TYPE: Emergency COMPLAINT: - EXTREMITY PAIN/INJURY DIAGNOSES: - Carpal tunnel syndrome, bilateral upper limbs - Pain in left hand - Personal history of nicotine dependence - Allergy to other foods - Other mcc (current) drug therapy 12/15/2021 05:43 [facility] OR TYPE: Emergency COMPLAINT: - 18 WKS PREG, VAGINAL BLEEDING DIAGNOSES: - Allergy status to other drugs, medicaments and biological substances - 17 weeks gestation of - Personal history of nicotine dependence - 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 - Hemorrhage in early , unspecified 12/02/2021 08:39 [facility] OR TYPE: Emergency COMPLAINT: - VOMITING BLOOD, SOB, LETHARGIC DIAGNOSES: - Allergy to other foods - Other mcc (current) drug therapy - Noninfective gastroenteritis and colitis, unspecified - Nausea with vomiting, unspecified INPATIENT VISIT TRACKING (12 MO.) 05/12/2022 05:13 [facility]a OR TYPE: [facility] COMPLAINT: - REPEAT C SECTION DIAGNOSES: - Other mental disorders complicating childbirth - Other mcc (current) drug therapy - Single live - Contact with and (suspected) exposure to COVID-19 - Anemia complicating childbirth - Anemia complicating childbirth - Acute posthemorrhagic anemia - Personal history of nicotine dependence - Single live - Anxiety disorder, unspecified - Other mcc (current) drug therapy - 39 weeks gestation of - Acute posthemorrhagic anemia - Maternal care for low transverse scar from previous delivery - 39 weeks gestation of - Anxiety disorder, unspecified - Other mental disorders complicating childbirth - Personal history of nicotine dependence - Contact with and (suspected) exposure to COVID-19 [email or web address]
== END 2022-10-30 23:30 | disposition home or self-care (01) ==
LOC: ED 22:27
DX: S61.012A Laceration without foreign body of left thumb without damage to nail, initial encounter (principal); W26.8XXA Contact with other sharp object(s), not elsewhere classified, initial encounter; Z87.891 Personal history of nicotine dependence; Z79.899 Other long term (current) drug therapy
CPT/HCPCS: 12001; 99282-25

== ENCOUNTER 2023-03-08 17:18 | Emergency (ER) | payer OTHER ==
[~2023-03-08] VITALS: Ht 152.4 cm; Wt 85.9 kg
--- OUTSIDE RECORDS SUMMARY | 2023-03-08 17:20 | XMS ---
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 Care History Medical/Surgical 12/16/2021 [facility] Patient has OB appt with Dr. Franco on 12/16/2021. Sourav VISIT COUNT (12 MO.) 4 [facility]. TOTAL 4 NOTE: Visits indicate total known visits. ED/UCC VISIT TRACKING (12 MO.) 03/08/2023 17:18 [facility] OR TYPE: Emergency COMPLAINT: - RT SIDED PAIN 03/07/2023 17:46 [facility] OR TYPE: Emergency COMPLAINT: - RIB PAIN 10/30/2022 22:27 [facility] OR TYPE: Emergency COMPLAINT: - LACERATION DIAGNOSES: - Contact with other sharp object(s), not elsewhere classified, initial encounter - Laceration without foreign body of left thumb without damage to nail, initial encounter - Other custodial (current) drug therapy - Personal history of nicotine dependence 10/09/2022 09:02 [facility] OR TYPE: Emergency COMPLAINT: - EXTREMITY PAIN/INJURY DIAGNOSES: - Allergy to other foods - Carpal tunnel syndrome, bilateral upper limbs - Other custodial (current) drug therapy - Pain in left hand - Personal history of nicotine dependence INPATIENT VISIT TRACKING (12 MO.) 05/12/2022 05:13 [facility]riz[facility]a OR TYPE: [facility] COMPLAINT: - REPEAT C SECTION DIAGNOSES: - 39 weeks gestation of - 39 weeks gestation of - Acute posthemorrhagic anemia - Acute posthemorrhagic anemia - Anemia complicating childbirth - Anemia complicating childbirth - Anxiety disorder, unspecified - Anxiety disorder, unspecified - Contact with and (suspected) exposure to COVID-19 - Contact with and (suspected) exposure to COVID-19 - Maternal care for low transverse scar from previous delivery - Other intermediate frame tender (current) drug therapy - Other intermediate frame tender (current) drug therapy - Other mental disorders complicating childbirth - Other mental disorders complicating childbirth - Personal history of nicotine dependence - Personal history of nicotine dependence - Single live - Single live [email or web address]
[2023-03-08] MEDS ORDERED: CYCLOBENZAPRINE10 MG PO (18:32)
[2023-03-08] MEDS ORDERED: NAPROSYN500 MG PO (18:32)
[2023-03-08 18:49] VITALS: BP 128/78
== END 2023-03-08 18:52 | disposition home or self-care (01) ==
LOC: ED 17:18
DX: R07.89 Other chest pain (principal); Z87.891 Personal history of nicotine dependence; Z79.899 Other long term (current) drug therapy
CPT/HCPCS: 71045; 99284 25

== ENCOUNTER 2023-05-19 06:31 | Day surgery (SDC) | payer OTHER ==
[2023-05-18 09:55] VITALS: BP 131/84
[~2023-05-19] VITALS: Ht 152.4 cm; Wt 65.9 kg
[~2023-05-19 06:31] MED LIST changes: +DULOXETINE HCL60 MG PO; +PREDNISONE20 MG PO
[2023-05-19 06:41] VITALS: BP 129/89
--- NOTE | 2023-05-19 07:32 | NUR ---
EXERCISED MINISTRY OF PRESENCE PT TALKED OF FAMILY. PT CONSENTED TO PRAYER. PRAYED FOR SUCCESSFUL PROCEDURE AND ONGOING BLESSING.
[2023-05-19] MEDS ORDERED: HYDROCODON-ACE1 EA10 PO (08:18)
--- NOTE | 2023-05-19 08:30 | NUR ---
05/19/23 0830 Lisset Moseley 0818- PT ARRIVES TO PACU NONAROUSABLE TO STIMULI. RESP EVEN AND UNLABORED. OXYGEN SAT HIGH 90'S ON 6L VIA MASK. 0827- PT AROUSING TO NOXIOUS STIMULI. PT UPDATED ON HER PROCEDURE BEING COMPLETE. PT NODS HER HEAD AND STATES SHE DOESN'T REMEMBER EVEN GOING TO SLEEP.
[2023-05-19 09:00] VITALS: BP 110/51
--- NOTE | 2023-05-19 09:00 | NUR ---
0900-PATIENT BACK TO ROOM FROM PACU ON RA. RECEIVED REPORT FROM FRANCINE ACOSTA. PATIENT IS AWAKE. RESP EVEN AND UNLABORED. DENIES PAIN AND NAUSEA. DRESSING IS CLEAN, DRY, AND INTACT. PATIENT DRINKING WATER. GAVE PATIENT PUDDING AND CRACKERS. CALL LIGHT WITHIN REACH.
[2023-05-19 10:05] VITALS: BP 112/52
--- NOTE | 2023-05-19 10:05 | NUR ---
1005-PATIENT IS AWAKE. RESP EVEN AND UNLABORED. RATES PAIN AT A 4/10. DENIES NAUSEA. DRESSING IS CLEAN, DRY, AND INTACT. CALL LIGHT WITHIN REACH.
--- NOTE | 2023-05-19 10:10 | NUR ---
1010-PAIN MEDICATION GIVEN PER EMAR.
--- NOTE | 2023-05-19 10:15 | NUR ---
1015-PATIENT UP TO RESTROOM.
--- NOTE | 2023-05-19 10:25 | NUR ---
1025-PROVIDED PATIENT WITH DISCHARGE INSTRUCTIONS. ALL QUESTIONS ANSWERED. PATIENT ARM IN SLING. STATES HER PAIN IS DECREASING. PATIENT AMBULATES TO WHEELCHAIR AND RIDE PROVIDED TO FRONT OF HOSPITAL WHERE HER RIDE WAS WAITING.
--- NOTE | 2023-05-22 08:51 | OR ---
[facility] [address] [place], [place] [address] Signed DATE OF OPERATION: 05/19/2023 SURGEON: Bronwyn Jhonson MD PREOPERATIVE DIAGNOSIS: Carpal tunnel syndrome, right. POSTOPERATIVE DIAGNOSIS: Carpal tunnel syndrome, right. PROCEDURE PERFORMED: Right carpal tunnel release. INTERNATIONAL SPECIALIST: None. ANESTHESIA: General. BLOOD LOSS: None. TOURNIQUET TIME: 5 minutes. BRIEF HISTORY: Sharyn is a 27-year-old female with progressive worsening symptoms of carpal tunnel. This was confirmed with nerve conduction studies. Risks and benefits of operative treatment were discussed with her and she elected to proceed. DESCRIPTION OF PROCEDURE: Once consent was obtained, she was taken to the operating room. After adequate anesthesia, she was left on the day surgery bed. A well-padded proximal arm tourniquet was placed and the arm was prepped and draped in a standard sterile fashion. The arm was exsanguinated and tourniquet inflated to 200 mmHg. A 1.5 cm incision was made transversely in the distal wrist crease. This was carried through the skin and subcutaneous tissue and directly down to the transverse carpal ligament. The remnants of the palmaris longus were retracted and protected. The transverse carpal ligament was dissected free of overlying soft tissue under loupe magnification. It was then released proximally a cm and a half and distally to the distal extent. The canal was palpated Electronically Signed By: BRONWYN JOHNSON MD 05/22/23 0851 PATIENT NAME: SHARYN KEENE OPERATIVE REPORT DATE OF : [birth year] REPORT #: [id number] PHYSICIAN: BRONWYN JOHNSON MD PCP: DANIEL RODRIGUEZ MD REPORT IS CONFIDENTIAL AND NOT TO BE RELEASED WITHOUT AUTHORIZATION [facility] [address] [place] [id number] Signed using the [place] and under direct visualization was found to be completely released. The wound was copiously irrigated with normal saline, closed with 3-0 nylon. The wound was injected with 7 mL of 0.25% plain Marcaine. The wound was then dressed with bacitracin, Adaptic, 4 x 8s and gauze. She tolerated the procedure well. All sponge, needle, and instrument counts were correct. Bronwyn Johnson MD BA/FLOYDL /[id number] Copies: ~ Electronically Signed By: BRONWYN JOHNSON MD 05/22/23 0851 PATIENT NAME: SHARYN KEENE OPERATIVE REPORT DATE OF : [birth year] REPORT #: [id number] PHYSICIAN: BRONWYN JOHNSON MD PCP: DANIEL RODRIGUEZ MD REPORT IS CONFIDENTIAL AND NOT TO BE RELEASED WITHOUT AUTHORIZATION
== END 2023-05-19 10:25 | disposition home or self-care (01) ==
LOC: DS 06:31
PROVIDERS: ATTEND Specialist
PROC: 01N50ZZ Release Median Nerve, Open Approach (ICD-10-PCS; principal; 2023-05-19 07:55)
DX: G56.03 Carpal tunnel syndrome, bilateral upper limbs (principal); F41.9 Anxiety disorder, unspecified; F32.9 Major depressive disorder, single episode, unspecified
CPT/HCPCS: 01810; J0131; J0690; J1100; J1885; J2001; J2250; J2405; J2704; J3010; J3490; J7121

== ENCOUNTER 2023-07-14 06:25 | Day surgery (SDC) | payer OTHER ==
[2023-07-04 15:46] VITALS: BP 118/87
[~2023-07-14] VITALS: Ht 152.4 cm; Wt 84.1 kg
[~2023-07-14 06:25] MED LIST changes: +HYDROCODON-ACE1 EA10 PO
[2023-07-14 06:38] VITALS: BP 136/63
--- NOTE | 2023-07-14 07:22 | NUR ---
DS ROUNDS. PROVIDED SUPPORTIVE PRESENCE. NORMALIZED PT EXPERIENCE. PROVIDED PRAYER. PT EXPRESSED APPRECIATION.
[2023-07-14] MEDS ORDERED: HYDROCODON-ACE1 EA10 PO (08:04)
--- NOTE | 2023-07-14 08:16 | NUR ---
07/14/23 0816 Yuly Johnson 0806 PT TO PACU AWAKE, ALERT AND TALKING. SHE DENIES PAIN AND NAUSEA.
[2023-07-14 08:27] VITALS: BP 130/67
--- NOTE | 2023-07-15 09:35 | OR ---
[facility] [address] [place], [place] [address] Signed DATE OF OPERATION: 07/14/2023 SURGEON: Bronwyn Johnson MD PREOPERATIVE DIAGNOSIS: Carpal tunnel syndrome, left. POSTOPERATIVE DIAGNOSIS: Carpal tunnel syndrome, left. PROCEDURE PERFORMED: Left carpal tunnel release. COURT REGISTRY OFFICER: None. ANESTHESIA: Miriam block. TOURNIQUET TIME: 20 minutes. BRIEF HISTORY: Sharyn is a 27-year-old female, who had significant pain and numbness in her hands. She had undergone nerve testing, which showed bilateral carpal tunnel. She had undergone successful right release and wished to proceed with the left. Risks, benefits, and alternatives of the surgery were discussed with her and she elected to proceed. DESCRIPTION OF PROCEDURE: Once consent was obtained, she was taken to the operating room, left on the day surgery bed. Hand table was brought in and [place] block was established. The hand was then prepped and draped in a standard sterile fashion. A 1.5 cm incision was made transversely in the distal wrist crease, this was carried through skin and subcutaneous tissue. Dissection was taken down to the palmaris longus tendon, which was identified, retracted, and protected. The transverse carpal ligament was identified under loupe magnification. It was dissected free of overlying soft tissue distally and proximally. It was released proximally a centimeter and distally to the distal extent under direct magnification. It was then palpated using a Kerrick and found to be completely released. The wound was then copiously irrigated with normal saline, closed with 3-0 nylon and Electronically Signed By: BRONWYN JOHNSON MD 07/15/23 0935 PATIENT NAME: SHARYN KEENE OPERATIVE REPORT DATE OF : [birth year] REPORT #: [id number] PHYSICIAN: BRONWYN JOHNSON MD PCP: DANIEL RODRIGUEZ MD REPORT IS CONFIDENTIAL AND NOT TO BE RELEASED WITHOUT AUTHORIZATION [facility] [address] [facility] [place] [place] [address] Signed injected with 7 mL of 0.25% plain Marcaine. Wound was then dressed with bacitracin, Adaptic, 4x8's, and gauze. She tolerated the procedure well. All sponge, needle, and instrument counts were correct. Bronwyn Johnson MD BA/MODL /[id number] Copies: ~ Electronically Signed By: BRONWYN JOHNSON MD 07/15/23 0935 PATIENT NAME: SHARYN KEENE OPERATIVE REPORT DATE OF : [birth year] REPORT #: [id number] PHYSICIAN: BRONWYN JOHNSON MD PCP: DANIEL RODRIGUEZ MD REPORT IS CONFIDENTIAL AND NOT TO BE RELEASED WITHOUT AUTHORIZATION
== END 2023-07-14 08:38 | disposition home or self-care (01) ==
LOC: DS 06:25
PROVIDERS: ATTEND Specialist
PROC: 01N50ZZ Release Median Nerve, Open Approach (ICD-10-PCS; principal; 2023-07-14 07:55)
DX: G56.02 Carpal tunnel syndrome, left upper limb (principal); F32.A Depression, unspecified; F41.9 Anxiety disorder, unspecified
CPT/HCPCS: 01810; 84703; J1885; J2250; J2405; J2704; J7121

== ENCOUNTER 2025-02-03 15:25 | Emergency (ER) | payer OTHER ==
[~2025-02-03] VITALS: Ht 152.4 cm; Wt 72.8 kg
[2025-02-03] MEDS ORDERED: ONDANSETRON ODT4 MG PO (17:22)
[2025-02-03] MEDS ORDERED: ONDANSETRON 4 MG TAB ODT SL ONE (17:30)
[2025-02-03 17:32] VITALS: BP 137/79
== END 2025-02-03 17:32 | disposition home or self-care (01) ==
LOC: ED 15:25
DX: S09.90XA Unspecified injury of head, initial encounter (principal); X58.XXXA Exposure to other specified factors, initial encounter; Z87.891 Personal history of nicotine dependence
CPT/HCPCS: 99283; A9270

== ENCOUNTER 2025-05-03 10:27 | Emergency (ER) | payer OTHER ==
[~2025-05-03] VITALS: Ht 162.6 cm; Wt 75.0 kg
[~2025-05-03 10:27] MED LIST changes: +ONDANSETRON ODT4 MG PO
[2025-05-03] MEDS ORDERED: KETOROLAC TROMETHAMINE 15 MG/ML VIAL IV ONE (11:15)
[2025-05-03 11:18] LABS: BLOOD/HGB, URINE NEGATIVE (Negative); KETONE, URINE NEGATIVE (Negative); LEUK ESTERASE, URINE TRACE (negative); NITRITE, URINE NEGATIVE (negative)
[2025-05-03 11:29] LABS: BACTERIA, URINE 1+ /hpf (negative); CASTS, URINE NONE SEEN \\lpf; CRYSTALS, URINE NONE SEEN (0-1+); EPITHELIAL CELLS, URINE SQUAMOUS 3+ /lpf (0-1+)
[2025-05-03 11:30] LABS: REFLEX CULTURE, URINE No (No)
[2025-05-03] MEDS ORDERED: CYCLOBENZAPRINE HCL 10 MG TAB PO ONE (11:45)
[2025-05-03] MEDS ORDERED: LIDOCAINE HCL 4% 1 EACH PATCH TD ONE (11:45)
[2025-05-03] MEDS ORDERED: IBUPROFEN 600 MG TAB PO ONE (11:45)
[2025-05-03] MEDS ORDERED: LIDODERM1 EACH TOP (11:49)
[2025-05-03] MEDS ORDERED: CYCLOBENZAPRINE10 MG PO (11:49)
[2025-05-03] MEDS ORDERED: IBU600 MG PO (11:49)
[2025-05-03 11:58] VITALS: BP 108/56
[2025-05-03] MEDS ORDERED: LIDOCAINE PATCH REMOVAL 1 EA TD SCH (21:00)
== END 2025-05-03 11:58 | disposition home or self-care (01) ==
LOC: ED 10:27
PROVIDERS: Emergency Medicine
DX: M54.50 Low back pain, unspecified (principal); Z87.891 Personal history of nicotine dependence
CPT/HCPCS: 80053; 81001; 84703; 85025; 99283; A9270